=== PATIENT | female | born 1980 | race Hispanic/Latino ===

== ENCOUNTER 2017-03-19 12:00 | Emergency (ER) | payer BC, SELFPAY ==
[2017-03-19 13:13] LABS: Bilirubin Negative (Negative); Blood, Urine Negative (Negative); Glucose, Urine (Dipstick) Negative (Negative); Ketone, Urine Negative (Negative); Nitrite Negative (Negative); Protein, Urine (Dipstick) Trace mg/dL (Neg-Trace)
[2017-03-19 13:18] LABS: Bacteria/HPF 2+ HPF (None Seen); Hyaline Casts/LPF 4-6 HYALINE CAST LPF (0-3 Hyaline); WBC/HPF 21-50 HPF (0-3)
[2017-03-19 13:43] LABS: RBC/HPF None Seen HPF (0-3)
== END 2017-03-19 13:58 | disposition home or self-care (01) ==
LOC: ERS 12:00
DX: N39.0 Urinary tract infection, site not specified (principal); F32.9 Major depressive disorder, single episode, unspecified; F17.210 Nicotine dependence, cigarettes, uncomplicated; V43.52XA Car driver injured in collision with other type car in traffic accident, initial encounter; Y92.039 Unspecified place in apartment as the place of occurrence of the external cause
CPT/HCPCS: 81003; 81015; 99284

== ENCOUNTER 2017-03-31 01:27 | Inpatient (IN) | payer SELFPAY ==
[2017-03-31] MEDS ORDERED: Acetaminophen 500 MG TAB ONE (01:33)
[2017-03-31] MEDS ORDERED: Morphine 2 MG/ML SYRINGE ONE ×2 (02:04→03:56)
[2017-03-31 02:21] LABS: Band 15 % (5-11); Mean Platelet Volume 7.8 fL (7.4-10.4); Neutrophil 83 % (42-75); Red Blood Cell (RBC) Count 4.36 mill/uL (4.20-5.40)
[2017-03-31 02:28] LABS: ALT (SGPT) 15 U/L (8-55); AST (SGOT) 10 U/L (5-34); Alkaline Phosphatase 61 U/L (40-150); Anion Gap 8 mmol/L (10-20); BUN (Urea Nitrogen) 11 mg/dL (7.0-18.7); Bilirubin, Total 0.9 mg/dL (0.2-1.2); Calc. Creatinine Clearance 0 mL/min (70-130); Carbon Dioxide 23 mmol/L (22-29); Chloride 105 mmol/L (98-107); Estimated GFR-MDRD 90; Globulin 3.6 g/dL (2.4-3.5); Lipase 11 U/L (8-78); Protein, Total 7.5 g/dL (6.0-8.3)
[2017-03-31 02:39] LABS: Lactic Acid - Sepsis 1.4 mmol/L (0.5-2.2)
[2017-03-31] MEDS ORDERED: Doxycycline Hyclate 100 MG, Admixture Fee 1 EACH in Sodium Chloride 0.9% 100 ML IVPB SCH ×2 (04:15→16:00)
[2017-03-31] MEDS ORDERED: cefOXitin Sodium 2 GM, Admixture Fee 1 EACH in Sodium Chloride 0.9% 100 ML IVPB SCH ×3 (04:15→18:00)
[2017-03-31] MEDS ORDERED: Ondansetron ODT 4 MG TAB SL PRN (04:40)
[2017-03-31] MEDS ORDERED: Ondansetron HCl/PF 4 MG/2 ML Vial IVP PRN ×2 (04:40→16:53)
[2017-03-31 04:46] VITALS: BMI 35.3
[2017-03-31 05:03] LABS: Bilirubin Negative (Negative); Blood, Urine Large (Negative); Glucose, Urine (Dipstick) Negative (Negative); Ketone, Urine Negative (Negative); Nitrite Negative (Negative); Protein, Urine (Dipstick) 30 mg/dL (Neg-Trace)
[2017-03-31 05:06] LABS: Bacteria/HPF 1+ HPF (None Seen); WBC/HPF 21-50 HPF (0-3)
[2017-03-31] MEDS: Sodium Chloride 0.9% 1,000 ML IV SCH ×3 (05:06→17:40)
[2017-03-31 05:45] LABS: RBC/HPF 0-3 HPF (0-3)
[2017-03-31 05:49] LABS: Hyaline Casts/LPF NONE SEEN LPF (0-3 Hyaline); Yeast-All Forms None Seen HPF (None Seen)
[2017-03-31] MEDS: Morphine 2 MG/ML SYRINGE SLOW IVP PRN ×3 (07:51→15:58)
[2017-03-31] MEDS: Acetaminophen 325 MG TAB PO PRN ×2 (08:04→12:33)
--- NOTE | 2017-03-31 08:11 | CT ---
PRELIMINARY REPORT/[facility]/EMERGENCY AFTER HOURS PROCEDURE: EXAM: CT Abdomen and Pelvis With Intravenous Contrast EXAM DATE/TIME: Exam ordered 03/31/2017 2:08 AM CLINICAL HISTORY: 36 years old, female; Pain; Abdominal pain; Localized; Left upper quadrant (luq); Prior surgery; Cortney robbie type: Er 10; 36 yo female presents with diffuse abdominal pain (rlq) that started abruptly 8 ho urs lpta. Reports associated nausea and feels feverish. Denies vomiting. Had vaginal bleeding 2 days ago that was "purple" and abnormal from usual bleeding. States last sexual intercourse was 1 month a go. HX of left ectopic with salpingectomy. Had tubal 2 years ago. Denies prior abdominal s urgery TECHNIQUE: Axial computed tomography images of the abdomen and pelvis with intravenous contrast. Coronal reformatted images were created and reviewed. CONTRAST: 95 mL of ISOVUE 370 administered intravenously. COMPARISON: No relevant prior studies available. FINDINGS: Lower thorax: No acute findings. ABDOMEN: Liver: Unremarkable. No mass. Gallbladder and bile ducts: Unremarkable. No calcified stones. No ductal dilation. Pancreas: Unremarkable. No mass. No ductal dilation. Spleen: Unremarkable. No splenomegaly. Adrenals: Unremarkable. No mass. Kidneys and ureters: Small incidental right renal cyst. No hydronephrosis. Stomach and bowel: There is a somewhat nodular 1.6 cm protrusion from the left fundal portion of the uterus, surrounded by inflammatory fat stranding, separate from the adjacent sigmoid colon. No obst ruction. No mucosal thickening. Appendix: Normal appendix. PELVIS: Bladder: Unremarkable. No mass. Reproductive: Partially collapsed and 2 cm corpus luteum cyst of the left ovary. ABDOMEN and PELVIS: Intraperitoneal space: Unremarkable. No free air. No significant fluid collection. Bones/joints: No acute fracture. No dislocation. Soft tissues: Unremarkable. Vasculature: Unremarkable. No abdominal aortic aneurysm. Lymph nodes: Unremarkable. No enlarged lymph nodes. IMPRESSION: 1. Partially collapsed and 2 cm corpus luteum cyst of the left ovary. 2. There is a somewhat nodular 1.6 cm protrusion from the left fundal portion of the uterus, surroun ded by inflammatory fat stranding, separate from the adjacent sigmoid colon. Etiology is uncertain. This could be chronic change related to prior salpingectomy or could represent a torsed loculated ut erine fibroid. Recommend comparison with images from prior study. Pelvic ultrasound may allow more d efinitive characterization. Thank you for allowing us to participate in the care of your patient. Dictated and Authenticated by: Manohar Ahuja MD 03/31/2017 2:40 AM Central Time ([place] \\T\\ [place]) FINAL REPORT CT ABDOMEN AND PELVIS WITH IV CONTRAST: I agree with the preliminary report given by Dr. Manohar Ahuja of [facility]. POS: [facility]
--- NOTE | 2017-03-31 08:25 | ULT ---
PRELIMINARY REPORT/[facility]/EMERGENCY AFTER HOURS PROCEDURE: EXAM: US Pelvis, Transvaginal EXAM DATE/TIME: Exam ordered 03/31/2017 2:27 AM CLINICAL HISTORY: 36 years old, female; Pain; Pelvic pain; Prior surgery; Surgery date: 6+ months; Surgery type: Btl TECHNIQUE: Real-time transvaginal pelvic ultrasound (complete) with image documentation. Transvaginal imaging w as used for better evaluation of the endometrium and adnexa. COMPARISON: CT Abdomen Pelvis W Con 2017-03-31 02:08 FINDINGS: Uterus/cervix: Uterus appears normal. The abnormal contour visible on CT is not appreciated on the i laly portion of the uterus. Endometrial stripe is normal in thickness. No myometrial mass. Right ovary: Right ovary normal with normal Doppler signal. Normal blood flow. Left ovary: 1.8 cm involuted/collapse cyst remnant in the left ovary. Left ovary otherwise normal wi th normal Doppler signal. Normal blood flow. Free fluid: Physiologic amount of free fluid in the pelvis. IMPRESSION: 1. 1.8 cm involuted/collapse cyst remnant in the left ovary. 2. Uterus appears normal. The abnormal contour visible on CT is not appreciated on the imaged portio n of the uterus. Thank you for allowing us to participate in the care of your patient. Dictated and Authenticated by: Manohar Ahuja MD 03/31/2017 3:26 AM Central Time ([place] \T\ [place]) FINAL REPORT PELVIC ULTRASOUND WITH DOPPLER: (TRANSABDOMINAL, TRANSVAGINAL, GU SCALE, COLOR FLOW, AND SPECTRAL DOPPLER) FINDINGS/IMPRESSION: I agree with the preliminary report given by Dr. Manohar Ahuja of [facility]. POS: [facility]
--- NOTE | 2017-03-31 09:14 | PDOC.EVN ---
Event Note - Event Note Event Note: Pt seen at 1020 S: mild nausea but no vomiting, feels thirsty, cont'd abdominal pain, no constipation or diarrhea O: Vital Signs (12 hours) Temp Pulse Resp BP Pulse Ox 03/31/17 08:00 102.9 F H 99 16 115/66 100 03/31/17 05:30 98.9 F 94 18 97 03/31/17 01:37 98.9 F 94 18 114/59 L 97 Weight Weight 193 lb 5 oz Laboratory Last Values WBC 27.0 thou/uL (4.8-10.8) H 03/31/17 01:49 RBC 4.36 mill/uL (4.20-5.40) 03/31/17 01:49 Hgb 14.1 g/dL (12.0-16.0) 03/31/17 01:49 Hct 42.0 % (36.0-47.0) 03/31/17 01:49 MCV 96.5 fl (81.0-99.0) 03/31/17 01:49 MCH 32.3 pg (27.0-31.0) H 03/31/17 01:49 MCHC 33.5 g/dL (32.0-36.0) 03/31/17 01:49 RDW 10.9 % (11.5-14.5) L 03/31/17 01:49 Plt Count 265 thou/uL (130-400) 03/31/17 01:49 MPV 7.8 fL (7.4-10.4) 03/31/17 01:49 Neutrophils % (Manual) 83 % (42-75) H 03/31/17 01:49 Band Neuts % (Manual) 15 % (5-11) H 03/31/17 01:49 Lymphocytes % (Manual) 1 % (21-51) L 03/31/17 01:49 Monocytes % (Manual) 1 % (0-10) 03/31/17 01:49 Plt Morphology Comment Appears Adequate 03/31/17 01:49 Sodium 132 mmol/L (136-145) L 03/31/17 01:49 Potassium 4.0 mmol/L (3.5-5.1) 03/31/17 01:49 Chloride 105 mmol/L (98-107) 03/31/17 01:49 Carbon Dioxide 23 mmol/L (22-29) 03/31/17 01:49 Anion Gap 8 mmol/L (10-20) L 03/31/17 01:49 BUN 11 mg/dL (7.0-18.7) 03/31/17 01:49 Creatinine 0.73 mg/dL (0.6-1.1) 03/31/17 01:49 Estimated GFR (MDRD) 90 03/31/17 01:49 Glucose 118 mg/dL (70-105) H 03/31/17 01:49 Lactic Acid 1.4 mmol/L (0.5-2.2) 03/31/17 01:04 Calcium 9.0 mg/dL (7.8-10.44) 03/31/17 01:49 Total Bilirubin 0.9 mg/dL (0.2-1.2) 03/31/17 01:49 AST 10 U/L (5-34) 03/31/17 01:49 ALT 15 U/L (8-55) 03/31/17 01:49 Alkaline Phosphatase 61 U/L (40-150) 03/31/17 01:49 Serum Total Protein 7.5 g/dL (6.0-8.3) 03/31/17 01:49 Albumin 3.9 g/dL (3.5-5.0) 03/31/17 01:49 Globulin 3.6 g/dL (2.4-3.5) H 03/31/17 01:49 Albumin/Globulin Ratio 1.1 g/dL (1.2-2.2) L 03/31/17 01:49 Lipase 11 U/L (8-78) 03/31/17 01:49 Urine Color YELLOW (Yellow) 03/31/17 04:50 Urine Clarity CLEAR (Clear) 03/31/17 04:50 Urine pH 8.0 (5.0-9.0) 03/31/17 04:50 Ur Specific [place] Greater than 1.060 (1.002-1.036) H 03/31/17 04:50 Urine Protein 30 mg/dL (Neg-Trace) H 03/31/17 04:50 Urine Glucose (UA) Negative mg/dL (Negative) 03/31/17 04:50 Urine Ketones Negative mg/dL (Negative) 03/31/17 04:50 Urine Blood Large (Negative) H 03/31/17 04:50 Urine Nitrite Negative (Negative) 03/31/17 04:50 Urine Bilirubin Negative (Negative) 03/31/17 04:50 Urine Urobilinogen 1.0 mg/dL (0.2-1.0) 03/31/17 04:50 Ur Leukocyte Esterase Small (Negative) H 03/31/17 04:50 Urine RBC 0-3 HPF (0-3) 03/31/17 04:50 Urine WBC 21-50 HPF (0-3) H 03/31/17 04:50 Ur Squamous Epith Cells 4-6 HPF (0-3) H 03/31/17 04:50 Urine Bacteria 1+ HPF (None Seen) H 03/31/17 04:50 Hyaline Casts NONE SEEN LPF (0-3 Hyaline) 03/31/17 04:50 Urine Yeast None Seen HPF (None Seen) 03/31/17 04:50 Urine Test Negative (Negative) 03/31/17 04:50 Gen. NAD Resp. CTA bilat no W, R, R CV. RRR Abd. +BS x 4 quad, soft, min tender no rebound or guarding A/P: 1. 36 yo female with suspected PID, positive sepsis score per RN * continue cefoxitin and Doxycycline * IVF * mild hyponatremia, change fluids to NS and continue to monitor electrolytes * blood cultures pending
--- NOTE | 2017-03-31 09:44 | HP ---
DATE OF SERVICE: 03/31/2017 CHIEF COMPLAINT: Abdominal pain. HISTORY OF PRESENT ILLNESS: This is a 36-year-old G4, P3-0-1-3 who presented to the emergency room with lower abdominal pain that started yesterday afternoon. She had been working and lifting boxes, but otherwise was not doing anything out of the ordinary. She had not eaten recently prior to that . She reports the pain is in the lower abdomen that radiates from one side or the other. Nothing m akes it worse or better. She denies any changes in bowel habits or urinary habits. She started vom iting this morning, but had not prior to that. She does have some fever and chills. REVIEW OF SYSTEMS: Negative for head, eyes, ears, nose, throat, cardiovascular, respiratory, GI, , neuro, psych, musculoskeletal, skin or constitutional symptoms other than mentioned above. TOWN MANAGER HISTORY: She has 3 prior vaginal deliveries. She had a ruptured ectopic with removal of her left tube. She had her right tube ligated and does not believe she could be . She was las t sexually active a month ago. The patient reported that prior to last month has had very regular m onthly cycles, but a few days ago had some vaginal bleeding. This was not a normal period for her n or did occur at the normal time. PAST MEDICAL HISTORY: None. PAST SURGICAL HISTORY: 1. Salpingectomy. 2. Tubal ligation. SOCIAL HISTORY: Positive for tobacco use of approximately half pack per day. Denies any alcohol or drug use. FAMILY HISTORY: Positive for breast cancer in her grandmother, but otherwise negative for breast, o vary, uterine, or colon cancer. PHYSICAL EXAMINATION: VITAL SIGNS: Temperature 102.9, blood pressure 115/66, pulse 99, respiratory rate 16, O2 sat 100% o n room air. GENERAL: Awake and alert, in no acute distress, but appears very uncomfortable. CHEST: Nonlabored. ABDOMEN: Obese and soft, but tender to palpation, some voluntary guarding, but no rebound. PELVIC: Deferred. LABORATORY DATA: WBC 27,000 with 83% neutrophils and 15% bands, hemoglobin 14.1, and hematocrit 42. 0. Chemistry: Sodium 132, lactic acid 1.4, creatinine 0.73. AST 10, ALT 15, lipase 11, urine cons istent with contamination. IMAGING: CT scan of the abdomen and pelvis showed a partially collapsed 2 cm corpus luteum on the l eft ovary. There is a somewhat nodular 1.6 cm protrusion from the left fundal portion of the uterus surrounded by inflammatory fat stranding. This is separate from the adjacent sigmoid colon with an uncertain etiology. Pelvic ultrasound was also performed showing the same 2 cm corpus luteal cyst, but otherwise normal appearing uterus and ovaries. ASSESSMENT AND PLAN: A 36-year-old G4, P3-0-1-3 with an abdominal infection given her abnormal labo ratory values and the only specific findings on CT scan related to her uterus. Pelvic inflammatory disease is unlikely given her history of tubal ligation and tubal removal; however, we will start he r on cefoxitin and doxycycline to see if she clinically improves. We will continue to monitor.
[2017-03-31 10:00] LABS: Hematocrit 41.1 % (36.0-47.0); Mean Platelet Volume 8.1 fL (7.4-10.4); Red Blood Cell (RBC) Count 4.25 mill/uL (4.20-5.40); White Blood Cell (WBC) Count 32.7 thou/uL (4.8-10.8)
[2017-03-31 10:22] LABS: Anion Gap 8 mmol/L (10-20); BUN (Urea Nitrogen) 8 mg/dL (7.0-18.7); Calc. Creatinine Clearance 161 mL/min (70-130); Calcium 8.8 mg/dL (7.8-10.44); Carbon Dioxide 24 mmol/L (22-29); Chloride 106 mmol/L (98-107); Estimated GFR-MDRD Greater than 90
[2017-03-31 10:54] LABS: Band 28 % (5-11); Neutrophil 66 % (42-75); Reactive Lymphocytes 1 % (0-10)
[2017-03-31] MEDS ORDERED: Acetaminophen 325 MG TAB PO SCH (11:30)
[2017-03-31] MEDS ORDERED: ISOVUE-370 76%-LOCM 1 ML ONE (15:00)
[2017-03-31] MEDS ORDERED: Acetaminophen 500 MG TAB PO PRN (16:53)
[2017-03-31] MEDS ORDERED: Ibuprofen 800 MG TAB PO PRN (16:53)
[2017-03-31] MEDS: HYDROcodone/Acetaminophen 10/325 mg Tablet PO PRN (17:38)
[2017-03-31] MEDS: cefOXitin Sodium 2 GM, Admixture Fee 1 EACH in Sodium Chloride 0.9% 100 ML IVPB SCH (20:47)
[2017-04-01] MEDS: Sodium Chloride 0.9% 1,000 ML IV SCH ×3 (01:35→15:54)
[2017-04-01] MEDS: cefOXitin Sodium 2 GM, Admixture Fee 1 EACH in Sodium Chloride 0.9% 100 ML IVPB SCH ×4 (01:35→18:56)
[2017-04-01] MEDS ORDERED: Doxycycline 100 MG in Syringe 0 ML IVPB SCH (04:00)
[2017-04-01] MEDS: Doxycycline Hyclate 100 MG, Admixture Fee 1 EACH in Sodium Chloride 0.9% 100 ML IVPB SCH ×2 (04:23→15:54)
[2017-04-01] MEDS: HYDROcodone/Acetaminophen 10/325 mg Tablet PO PRN (04:28)
[2017-04-01 06:40] LABS: #Eosinphils 0.1 thou/uL (0.0-0.7); #Lymphocytes 1.3 thou/uL (1.20-3.40); #Monocytes 0.4 thou/uL (0.11-0.59); #Neutrophils 12.8 thou/uL (1.40-6.50); %Basophils 0.3 % (0.0-1.0); %Eosinophils 0.6 % (0.0-10.0); %Lymphocytes 8.6 % (21.0-51.0); %Monocytes 2.4 % (0.0-10.0); Hematocrit 36.4 % (36.0-47.0); Mean Platelet Volume 8.5 fL (7.4-10.4); Red Blood Cell (RBC) Count 3.78 mill/uL (4.20-5.40); White Blood Cell (WBC) Count 14.5 thou/uL (4.8-10.8)
[2017-04-01 06:42] LABS: Anion Gap 7 mmol/L (10-20); BUN (Urea Nitrogen) 8 mg/dL (7.0-18.7); Calc. Creatinine Clearance 163 mL/min (70-130); Calcium 8.3 mg/dL (7.8-10.44); Carbon Dioxide 23 mmol/L (22-29); Chloride 107 mmol/L (98-107); Estimated GFR-MDRD Greater than 90
[2017-04-01] MEDS ORDERED: FLU VACC QS2017-18 36 mo. & older 0.5 ML SYRINGE IM ONE (09:00)
--- NOTE | 2017-04-01 12:05 | PRG ---
DATE OF SERVICE: 04/01/2017 SUBJECTIVE: The patient is a 36-year-old female who was admitted for concerns of PID and possible sepsis. The patient was placed on doxycycline and Mefoxin and has shown good response. She has been afebrile now 24 hours with her last temperature of 101.1 at 12:30 yesterday afternoon. Patient reports herself that she is feeling much better today and is tolerating diet, ambulating, voiding on her own and having good pain control. OBJECTIVE: VITAL SIGNS: Blood pressure today is 111/63, temperature 98.5, pulse of 68 and respiratory rate of 20. GENERAL: She appears to be in no acute distress. She is alert and oriented, cooperative and pleasant to interact with. HEAD: Normocephalic and atraumatic. ABDOMEN: Soft with improved tenderness to palpation. LABORATORY STUDIES: Lab count today; white count is 14.5 down from 32.7, hemoglobin 12.0, hematocrit 36.4 and platelets 241,000. ASSESSMENT AND PLAN: The patient is a 36-year-old female with a pelvic infection responding to Mefoxin and doxycycline. White count has significantly dropped in the last 24 hours. The patient remains afebrile. The patient is having good symptomatic improvement. We will reevaluate the patient this evening for possible discharge and will continue antibiotics as an outpatient on augmentin and doxycycline. TOM
[2017-04-01 19:47] VITALS: BP 127/75; TEMP 98.5
--- NOTE | 2017-04-02 02:26 | DIS ---
DATE OF ADMISSION: 03/31/2017 at approximately 1:00 in the morning. DATE OF DISCHARGE: 04/01/2017 ADMITTING DIAGNOSIS: Abdominal infection. DISCHARGE DIAGNOSIS: Abdominal infection. CONSULTATIONS: None. HOSPITAL COURSE: Patient is a 36-year-old female, who was admitted to the hospital with an abdomino pelvic infection and there was inflammatory fat stranding seen surrounding the uterus. Patient has a history of bilateral tubal ligation and the patient was admitted to the [facility] floor and placed on do xycycline and cefoxitin, and her white count has precipitously dropped from 32,000 yesterday morning to 14,000 this morning. She has remained afebrile now for nearly 36 hours and is feeling much bett er with her pain much improved. The patient has expressed an interest in a desire to be discharged home to be with her family. PHYSICAL EXAMINATION: VITAL SIGNS: This evening, the blood pressure 120/61, temperature 98.4, pulse of 63, respiratory ra te of 20. GENERAL: She appears to be in no acute distress. She is alert and oriented, cooperative and pleasa nt to interact with. HEENT: Head is normocephalic, atraumatic. ABDOMEN: Soft with some minimal tenderness. The patient is being discharged to home on Augmentin 500 mg to be taken twice a day for the next 5 d ays and doxycycline 100 mg to be taken twice a day for the next week. Patient has been counseled to follow up with [facility] and with an [facility] to be seen in the next 7 days. She has also been cou nseled to return if she experiences fever or increasing pain.
== END 2017-04-01 20:02 | disposition home or self-care (01) | DRG 758 ==
LOC: ERS 01:27 → ONC 04:41 → 3SE 10:45
PROVIDERS: ADMIT Obstetrics & Gynecology; ATTEND Obstetrics & Gynecology
DX: N73.9 Female pelvic inflammatory disease, unspecified (principal); E87.0 Hyperosmolality and hypernatremia; F17.210 Nicotine dependence, cigarettes, uncomplicated
CPT/HCPCS: 36415; 74177; 76856; 80048; 80053; 81003; 81015; 81025; 83605; 83690; 85025; 87040; 87480; 87491; 87510; 87591; 87660; 96374; 96375; 96376; A4216; J0694; J2270; J2405; J7050